=== PATIENT | female | born 1965 | race Caucasian/White ===

== ENCOUNTER → 2018-11-30 16:40 | Outpatient (CLI) | payer OTHER, SELFPAY ==
--- NOTE | 2018-11-30 | DI.MG.S_ITS ---
BILATERAL DIGITAL SCREENING MAMMOGRAM 3D/2D WITH CAD: 11/30/2018 CLINICAL: Routine screening. Comparison is made to exams dated: 07/18/2016 mammogram, 04/06/2006 mammogram, and 10/02/2005 mammogram - [facility]. The tissue of both breasts is extremely dense, which lowers the sensitivity of mammography. Current study was also evaluated with a Computer Aided Detection (CAD) system. There are mole markers on both breasts. No significant masses, calcifications, or other findings are seen in either breast. There has been no significant interval change. IMPRESSION: NEGATIVE There is no mammographic evidence of malignancy. A 1 year screening mammogram is recommended. This exam was interpreted at Station ID: [id number]. NOTE: For mammograms, a report in lay terms will be sent to the patient. Approximately 15% of breast malignancies will not be visualized mammographically. In the management of a palpable breast mass, a negative mammogram must not discourage biopsy of a clinically suspicious lesion. Electronically Signed By: Thiago [email or web address]/[email or web address]:11/30/2018 19:17:09 letter sent: Normal Exam ACR BI-RADS Category 1: Negative 3341F
== END ==
PROVIDERS: Family Provider Family Medicine; PCP Family Medicine; Visit Provider Specialist
DX: Z12.31 Encounter for screening mammogram for malignant neoplasm of breast (principal)
CPT/HCPCS: 77063; 77067

== ENCOUNTER → 2020-12-19 11:41 | Outpatient (CLI) | payer OTHER, SELFPAY ==
[2020-12-19 13:14] LABS: COVID19 -Nasal RAPID Negative (Negative)
== END ==
PROVIDERS: PCP Internal Medicine; Visit Provider Physician Assistant
DX: Z20.822 Contact with and (suspected) exposure to COVID-19 (principal); Z01.812 Encounter for preprocedural laboratory examination
CPT/HCPCS: 87635

== ENCOUNTER 2020-12-21 12:53 | Day surgery (SDC) | payer OTHER, SELFPAY ==
[2020-12-21] VITALS (7 sets, daily range): BP systolic 109–147; BP diastolic 66–87; PULSE 57–71; RESP 12–18; TEMP 36.6–36.8; O2SAT 99–100; BMI 23.1
--- NOTE | 2020-12-21 11:40 | P.HP_ITS ---
History of Present Illness History of Present Illness Date Patient Seen: 12/21/20 Time Patient Seen: 11:40 [place] [facility] [place]: 54 Years Old Female seen today for consideration of a screening colonoscopy. This will be her first colonoscopy. There have been no lower GI symptoms suggesting disease such as change in bowel habits, bleeding, abdominal pain or anemia. She does have a family history of colon cancer in her mother and colon polyps in her sibling. Overall health issues have been stable, including no major cardiac events for at least 6 weeks. Past Medical History: vocal chord polyp, right 2004 STORE OPERATIONS MANAGER care elsewhere Arthralgia FATIGUE Plantar fasciitis VITAMIN D DEFICIENCY OTOSCLEROSIS Past Surgical History: Tonsillectomy adenoids, 1998 Stapedectomy, right 1995 Family History: Family Hx Ovarian Cancer Mom- colon cancer Sister- Skin cancer Sibling - colon polyp Social History: Marital Status: [place], 04/07/61 Children: 3 Occupation: teacher Household Members: 2 Education: [place] Alcohol drinks/day: 1-2 per week Caffeine use/day: 1-2 Type of Exercise: elliptical Exercise Times per Week: 3 Guns in home: no Dental Care w/in 6 mos.: yes Sun Exposure: frequently Seat Belt Use: yes Smoking Status: never smoker Patient History Medical History (Updated 02/11/19 @ 14:04 by Faith Browning MD) Chickenpox (~1967) Hearing loss Surgical History (Updated 11/19/17 @ 08:00 by Zoya Spence) Anesthesia History of ear surgery (~1994) Status post adenoidectomy (~1979) Family & Social History Family History (Updated 11/19/17 @ 08:03 by Zoya Spence) Mother Colon cancer Ovarian cancer Father Leukemia Family/Other Ovarian cancer Grandfather Leukemia Grandmother Heart failure Grandfather Heart attack Grandmother Heart attack Tobacco & Substance use: Smoking Status Never smoker Meds Home Medications and Allergies Home Medications Medication Instructions Recorded Confirmed Type cyclosporine 0.05 % eye drops in a 1 drp OPHTH #0 ea 01/03/16 02/11/19 History dropperette (Restasis) clobetasol 0.05 % topical gel 1 applictn TOP DAILY #15 gram 02/24/19 12/21/20 Rx Allergies Allergy/AdvReac Type Severity Reaction Status Date / Time penicillin V [PENICILLIN V] Allergy Unknown Verified 12/21/20 13:41 Review of Systems Review of Systems Narrative: See HPI. Exam Narrative Exam Narrative: General: Alert and oriented, appearing stated age and in no acute distress. Head: Head normocephalic/atraumatic. Neck: Neck soft and supple, no lymphadenopathy. Lungs: Clear to auscultation bilaterally, no wheezes, rhonchi or rales. Heart: Normal S1 and S2 with regular rate and rhythm, no audible murmurs, rubs or gallops. Abdomen: Soft, non-tender, non-distended, no organomegaly. Possitive bowel sounds. Skin: intact without suspicious lesions or rashes, Psych: Alert and oriented x 3. Assessment & Plan Assessment & Plan narrative: 1. Family history of colon cancer, mother 2. Family history of colon polyps 3. Screening for colon cancer Plan for colonoscopy. The nature and character of the procedure as well as anticipated results were discussed. The possibility of not completing the procedure was also discussed. Possible complications including aspiration pneumonia, bleeding, perforation and reaction to medications either for sedation or preparation and missed lesions were discussed. Questions were answered and proceeding to the colonoscopy was elected. Informed consent signed. I sincerely appreciate the referral allowing me to participate in this patient's care. Please contact me with any questions or concerns.
--- NOTE | 2020-12-21 11:42 | P.OP.ENDO_ITS ---
Operative Date/Time/Diagnoses Date of procedure: 12/21/20 Time of procedure: 11:42 Procedure Notes SCOAP/Timeout: 2:07 p.m. Procedure in detail: ENDOSCOPIST: Mia Jha MD Sedation RN: Lyndsey Temple RN Sedation start time: 2:08 p.m. Sedation end time: 2:32 p.m. PROCEDURE: Colonoscopy INDICATIONS: 1. Family history of colon cancer, mother 2. Family history of colon polyps 3. Screening for colon cancer MEDICATION: Levsin 0.125 mg sublingual, incremental doses of Versed and fentanyl until appropriate level sedation achieved. ASA CLASS: 1 CECAL WITHDRAWAL TIME: 10 minutes COMPLICATIONS: None. EXTENT OF PROCEDURE: Cecum. QUALITY OF PREP: Good with portions of liquid stool. PROCEDURE: Prior to insertion of the colonoscope, a digital rectal examination was accomplished with circumferential palpation of the distal rectal mucosa without significant findings being noted. The high-definition pediatric colonoscope was passed into the rectum in the usual fashion and advanced over to the cecum witho ut difficulty. The ileocecal valve, appendiceal stoma, and medial wall all could be inspected and no abnormalities were seen. ASCENDING COLON: As the colonoscope was withdrawn, care was taken to expose and inspect the haustral folds and no abnormalities were seen. HEPATIC FLEXURE: Normal, no polyps, diverticula or other abnormalities. TRANSVERSE COLON: Normal, no polyps, diverticula or other abnormalities. DESCENDING COLON: Normal, no polyps, diverticula or other abnormalities. SIGMOID COLON: Normal, no polyps, diverticula or other abnormalities. RECTUM: Normal. J maneuver was produced. There was no significant perianal disease. The J maneuver was broken. The remainder of the rectum was inspected and there was no external hemorrhoid disease. The scope was withdrawn. IMPRESSION: 1. Normal colonoscopy PLAN: 1. Repeat colonoscopy in 5 years secondary to family history of colon cancer colon polyps. The possibility of a missed lesion including a malignancy has been discussed with the patient previously. Potential alarm symptoms have been discussed and should be reported immediately.
[2020-12-21] MEDS: LACTATED RINGERS 1,000 ML 200 ML IV (13:42)
[2020-12-21] MEDS: HYOSCYAMINE 0.125 MG TABLET PO (13:57)
[2020-12-21] MEDS: MIDAZOLAM 5 MG/5 ML VIAL IV (14:09)
[2020-12-21] MEDS: fentaNYL 250 MCG/5 ML INJ IV (14:10)
--- NOTE | 2020-12-21 15:13 | SUR.PHASEII ---
Belly soft, ready to go, ride called, pt dressed, left unit in stable condition.
== END 2020-12-21 15:14 | disposition home or self-care (01) ==
PROVIDERS: PCP Internal Medicine; Referring Provider Student in an Organized Health Care Education/Training Program; Visit Provider Student in an Organized Health Care Education/Training Program
PROC: 0DJD8ZZ Inspection of Lower Intestinal Tract, Via Natural or Artificial Opening Endoscopic (ICD-10-PCS; CPT 45378; principal; 2020-12-21 13:45)
DX: Z12.11 Encounter for screening for malignant neoplasm of colon (principal); Z80.0 Family history of malignant neoplasm of digestive organs
CPT/HCPCS: 45378; J2250; J3010

== ENCOUNTER 2021-01-03 15:15 | Outpatient (RCR) | payer OTHER, SELFPAY ==
--- NOTE | 2020-11-14 16:02 | PT.OIE ---
Current Diagnoses Pain in right knee (11/14/20) Other abnormalities of gait and mobility (11/14/20) Abnormal posture (11/14/20) Weakness (11/14/20) Past Medical History (Last Updated 11/19/17 @ 08:00 by Zoya Spence) Chickenpox (~1967) Hearing loss History of ear surgery (~1994) Past Surgical History (Last Updated 11/19/17 @ 08:00 by Zoya Spence) Anesthesia History of ear surgery (~1994) Status post adenoidectomy (~1979) Visit Care Team Role Provider Type SIENNA Ruth Attending Provider Advanced Food Beverage Manager Primary Care Provider Referring Provider Specialty: [facility] Address: [address] [place] [address] [place], [place], [facility] Email: [email or web address] Physical Therapy Initial Evaluation PT-OP-A Visit Information Start: 11/13/20 13:01 Freq: Status: Active Protocol: Document 11/14/20 14:16 [facility] (Rec: 11/14/20 15:51 [facility] [id number]) Out-Patient Physical Therapy Visit Information Visit Information Visit Type Initial Evaluation Visit Start Time 14:35 Visit Stop Time 15:30 Total Visit Minutes 55 Visit Number 1 Number of ENVIRONMENTAL PLANNER Visits 0 PT-OP-B Current Condition Start: 11/13/20 13:01 Freq: Status: Active Protocol: Document 11/14/20 14:16 [facility] (Rec: 11/14/20 15:51 [facility] [id number]) Current Condition History of Current Condition Onset Date 1 week ago spasms, chronic knee pain Current Complaints R knee pain & quad spasms History of Current Condition Pt reports wed she was camping and R leg was straight and she leaned fwd and shifted on it and R knee and quad seized and there was no way she could bend her knee. After about 1 min, it just relaxed. Thursday, she was vacuuming car and the same thing happened at that time it lasted for about 10 min. She looked at her knee and her knee cap was up . Pt reports it was hard to bear weight and sehw as shimmying on her leg and felt a relaxation and knee cap shifted down and it was fine. It felt like a spasm. She does have history of R knee pain even into her 20s and every now and then it will catch. It never prevented her from doing things. 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 Pt reports LBP and neck that are on/off. Reports R knee cap can sometimes be tender Treatment Goals Patient/Caregiver Goals be able feel comfortable in straight knee position, return to yoga and hiking and biking w/o feeling nervous PT-OP-C Subjective Start: 11/13/20 13:01 Freq: Status: Active Protocol: Document 11/14/20 14:16 [facility] (Rec: 11/14/20 15:51 [facility] [id number]) Patient Questionnaires Lower Extremity Functional Scale LEFS Score 76 PT-OP-D Balance Start: 11/13/20 13:01 Freq: Status: Active Protocol: Document 11/14/20 14:16 [facility] (Rec: 11/14/20 15:51 [facility] [id number]) Balance Tests Single Limb Standing Single Limb- Right >30 sec lat shear of pelvis Single Limb- Left >30 sec PT-OP-G Mobility & Gait Start: 11/13/20 13:01 Freq: Status: Active Protocol: Document 11/14/20 14:16 [facility] (Rec: 11/14/20 15:51 [facility] [id number]) OP Gait Assessment Comments Gait Comments significant rotation of lumbar spine w/push off and dec knee ext w/push off kristofer R PT-OP-J Posture/Palpation/Skin Start: 11/13/20 13:01 Freq: Status: Active Protocol: Document 11/14/20 14:16 [facility] (Rec: 11/14/20 15:51 [facility] [id number]) Posture Evaluation Jorge Alberto Postural Classification System Lumbar Protective Mechanism Left AP 2 Lumbar Protective Mechanism Right AP 2 Lumbar Protective Mechanism Left PA 2 Lumbar Protective Mechanism Right PA 1 Comments Posture Comments R>L IR of femur, tibia ER R PT-OP-K Range of Motion Start: 11/13/20 13:01 Freq: Status: Active Protocol: Document 11/14/20 14:16 [facility] (Rec: 11/14/20 15:51 [facility] [id number]) Knee Goniometric Range of Motion Knee Left Flexion Active (degrees) 135 Extension Active (degrees) 0 Right Flexion Active (degrees) 134 Extension Active (degrees) 5 Comments pain ext, discomfort flex PT-OP-L Special Tests Start: 11/13/20 13:01 Freq: Status: Active Protocol: Document 11/14/20 14:16 [facility] (Rec: 11/14/20 15:51 [facility] [id number]) Special Tests Knee Special Tests Jared Test Test Results positive R Straight Leg Raise Test Results min tightness B Varus- 25 Degrees Test Results neg Huynh Chondromalacia Test Results positive R Denys's Test Results neg Valgus- 25 Degrees Test Results neg PT-OP-M Strength Start: 11/13/20 13:01 Freq: Status: Active Protocol: Document 11/14/20 14:16 [facility] (Rec: 11/14/20 15:51 [facility] [id number]) Hip Strength Hip Manual Muscle Testing Right Flexion (L2) 4+ Good+ Extension (S1) 4 Good Abduction 5 Normal Adduction 5 Normal External Rotation 3+ Fair+ Internal Rotation 4+ Good+ Comments pain ER Left Flexion (L2) 4+ Good+ Extension (S1) 5 Normal Abduction 5 Normal Adduction 5 Normal External Rotation 5 Normal Internal Rotation 5 Normal Knee Strength Knee Manual Muscle Testing Right Flexion (S2) 5 Normal Extension (L3) 4 Good Comments pain ext Left Flexion (S2) 5 Normal Extension (L3) 5 Normal Ankle/Foot Strength Ankle and Foot Manual Muscle Testing Right Dorsiflexion (L4) 5 Normal Plantarflexion (S1) 4- Good- Comments 12 heel raises and knee uncomfortable Left Dorsiflexion (L4) 5 Normal Plantarflexion (S1) 5 Normal Comments 20 heel raises PT-OP-Q Treatments Start: 11/13/20 13:01 Freq: Status: Active Protocol: Document 11/14/20 14:16 [facility] (Rec: 11/14/20 15:51 [facility] [id number]) Manual Therapy Treatment Taping KT Body Location R knee Treatment Focus 3 Y for med glide of patella Type of Tape Kinesio Tape Self-Care/Home Management Treatment Education Other Education discussed importance of healthy eating habits, and water intake to prevent cramping, edu on knee anatomy PT-OP-T Assessment and Plan Start: 11/13/20 13:01 Freq: Status: Active Protocol: Document 11/14/20 14:16 [facility] (Rec: 11/14/20 15:51 [facility] [id number]) Physical Therapy Assessment Rehab Potential Rehabilitation Potential Good Evaluation Complexity Number of Personal Factors/Comorbidities 1-2 Number of Body Systems Impaired 4 or More Clinical Presentation at Evaluation Evolving Impairments Impairments Activity Tolerance,Balance, Functional Activities, Functional Mobility,Gait,Pain, Posture,ROM,Soft Tissue Mobility,Strength Goals gait Short Term Goal (STG) Pt will be able to do SLS for 30 sec B w/o lat leaning. STG Duration 12/15/20 Fur Storage Clerk Goal (LTG) Pt will be able to amb w/good mechanics and full push off B. LTG Duration 01/15/21 strength Short Term Goal (STG) Pt will be indep w/HEP STG Duration 12/15/20 Fur Storage Clerk Goal (LTG) Pt will have 5/5 LE MMT in all planes painfree and at least 4/5 LPM to show improved lower body stability in order to participate more in her activities w/o concerns of pain. LTG Duration 01/15/21 activities Short Term Goal (STG) Pt iwll be able to straighten knee to 0 deg w/o inc pain. STG Duration 12/15/20 Care Home Goal (LTG) Pt will be able to do all activities without pain or concerns of instability w/ R knee. LTG Duration 01/15/21 Assessment Summary Assessment Pt presents w/R knee pain w/ recent quad cramping that was debilitating. She has been very careful w/R knee over the past week when the quad cramping started because she is scared for it to that again . She has had R knee pain intermittently for the past 30 years, but never to the point that it stopped her from doing activities, but she would ice or just notice it when turning up the stairs etc . She was positive for possible meniscal tear and patellar tracking dysfunction. She has noticable gait changes and dec mm tone on R side. She would benefit from PT to work on quad strength, balance, gait mechanics and manual for dec pain. Physical Therapy Plan Frequency and Duration Frequency of Treatment 1-2x/week Duration of Treatment 2 months Plan of Care Start Date 11/14/20 Plan of Care End Date 01/15/21 Therapeutic Interventions Therapeutic Interventions Aquatic Therapy,Balance Training,Gait Training,Home Exercise Program,Joint Mobilizations,Manual Therapy, Neuromuscular Re-education, Patient/Caregiver Education, Self-Care/Home Management,Soft Tissue Mobilization,Taping, Therapeutic Activities, Therapeutic Exercises Modalities Cold Pack/Ice Massage,Electric Stimulation,Hot Packs, Infrared Therapy,Ultrasound Next Visit Focus/Plan Next Note Type Treatment Note Next Visit Plan bridge, squat, rolling out edu , STM to ITB & quad, assess response to taping, quad set into towel
--- NOTE | 2020-11-14 16:02 | PT.OPPOC ---
Physical, Occupational & Speech Therapy At [facility] Current Diagnoses Pain in right knee (11/14/20) Other abnormalities of gait and mobility (11/14/20) Abnormal posture (11/14/20) Weakness (11/14/20) Visit Care Team Role Provider Type SIENNA Ruth Attending Provider Advanced Global Sourcing Manager Primary Care Provider Referring Provider Specialty: [facility] Address: [address] [place] [address], [facility] [[email or web address] [place], [address] Email: [email or web address] Plan Of Care PT-OP-T Assessment and Plan Start: 11/13/20 13:01 Freq: Status: Active Protocol: Document 11/14/20 14:16 [facility] (Rec: 11/14/20 15:51 [facility] [id number]) Physical Therapy Assessment Rehab Potential Rehabilitation Potential Good Evaluation Complexity Number of Personal Factors/Comorbidities 1-2 Number of Body Systems Impaired 4 or More Clinical Presentation at Evaluation Evolving Impairments Impairments Activity Tolerance,Balance, Functional Activities, Functional Mobility,Gait,Pain, Posture,ROM,Soft Tissue Mobility,Strength Goals gait Short Term Goal (STG) Pt will be able to do SLS for 30 sec B w/o lat leaning. STG Duration 12/15/20 Halfway Goal (LTG) Pt will be able to amb w/good mechanics and full push off B. LTG Duration 01/15/21 strength Short Term Goal (STG) Pt will be indep w/HEP STG Duration 12/15/20 Nurse Anesthesia Program Director Goal (LTG) Pt will have 5/5 LE MMT in all planes painfree and at least 4/5 LPM to show improved lower body stability in order to participate more in her activities w/o concerns of pain. LTG Duration 01/15/21 activities Short Term Goal (STG) Pt iwll be able to straighten knee to 0 deg w/o inc pain. STG Duration 12/15/20 Nurse Anesthesia Program Director Goal (LTG) Pt will be able to do all activities without pain or concerns of instability w/ R knee. LTG Duration 01/15/21 Assessment Summary Assessment Pt presents w/R knee pain w/ recent quad cramping that was debilitating. She has been very careful w/R knee over the past week when the quad cramping started because she is scared for it to that again . She has had R knee pain intermittently for the past 30 years, but never to the point that it stopped her from doing activities, but she would ice or just notice it when turning up the stairs etc . She was positive for possible meniscal tear and patellar tracking dysfunction. She has noticable gait changes and dec mm tone on R side. She would benefit from PT to work on quad strength, balance, gait mechanics and manual for dec pain. Physical Therapy Plan Frequency and Duration Frequency of Treatment 1-2x/week Duration of Treatment 2 months Plan of Care Start Date 11/14/20 Plan of Care End Date 01/15/21 Therapeutic Interventions Therapeutic Interventions Aquatic Therapy,Balance Training,Gait Training,Home Exercise Program,Joint Mobilizations,Manual Therapy, Neuromuscular Re-education, Patient/Caregiver Education, Self-Care/Home Management,Soft Tissue Mobilization,Taping, Therapeutic Activities, Therapeutic Exercises Modalities Cold Pack/Ice Massage,Electric Stimulation,Hot Packs, Infrared Therapy,Ultrasound Next Visit Focus/Plan Next Note Type Treatment Note Next Visit Plan bridge, squat, rolling out edu , STM to ITB & quad, assess response to taping, quad set into towel Plan of Care Dates Plan of Care Start Date 11/14/20 Plan of Care End Date 01/15/21 Electronically Signed by: Mena López, PT 11/14/20 1601 Please Sign and Return: I have reviewed this Plan of Care and certify that the skilled therapy services above are required to meet the patient?s needs. Physician Signature Date Printed Name and Credentials Clinical Instructor Signature Printed Name and Credentials
--- NOTE | 2020-11-15 18:07 | PT.OTN ---
Current Diagnoses Pain in right knee (11/15/20) Other abnormalities of gait and mobility (11/15/20) Abnormal posture (11/15/20) Weakness (11/15/20) Physical Therapy Treatment Note PT-OP-A Visit Information Start: 11/13/20 13:01 Freq: Status: Active Protocol: Document 11/15/20 12:59 [facility] (Rec: 11/15/20 18:07 [facility] [id number]) Out-Patient Physical Therapy Visit Information Visit Information Visit Type Treatment Note Visit Start Time 10:34 Visit Stop Time 11:16 Total Visit Minutes 42 Visit Number 2 Number of MORTGAGE FUNDER Visits 0 PT-OP-B Current Condition Start: 11/13/20 13:01 Freq: Status: Active Protocol: Document 11/14/20 14:16 [facility] (Rec: 11/14/20 15:51 [facility] [id number]) Current Condition History of Current Condition Onset Date 1 week ago spasms, chronic knee pain Current Complaints R knee pain & quad spasms History of Current Condition Pt reports wed she was camping and R leg was straight and she leaned fwd and shifted on it and R knee and quad seized and there was no way she could bend her knee. After about 1 min, it just relaxed. Thursday, she was vacuuming car and the same thing happened at that time it lasted for about 10 min. She looked at her knee and her knee cap was up . Pt reports it was hard to bear weight and sehw as shimmying on her leg and felt a relaxation and knee cap shifted down and it was fine. It felt like a spasm. She does have history of R knee pain even into her 20s and every now and then it will catch. It never prevented her from doing things. 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 Pt reports LBP and neck that are on/off. Reports R knee cap can sometimes be tender Treatment Goals Patient/Caregiver Goals be able feel comfortable in straight knee position, return to yoga and hiking and biking w/o feeling nervous PT-OP-C Subjective Start: 11/13/20 13:01 Freq: Status: Active Protocol: Document 11/15/20 12:59 [facility] (Rec: 11/15/20 18:07 [facility] [id number]) OP-PT Subjective Patient Comments Patient Comments Pt reports she noticed some pain in R knee when walking down here initially but went away after the first little bit PT-OP-D Balance Start: 11/13/20 13:01 Freq: Status: Active Protocol: Document 11/14/20 14:16 [facility] (Rec: 11/14/20 15:51 [facility] [id number]) Balance Tests Single Limb Standing Single Limb- Right >30 sec lat shear of pelvis Single Limb- Left >30 sec PT-OP-G Mobility & Gait Start: 11/13/20 13:01 Freq: Status: Active Protocol: Document 11/14/20 14:16 [facility] (Rec: 11/14/20 15:51 [facility] [id number]) OP Gait Assessment Comments Gait Comments significant rotation of lumbar spine w/push off and dec knee ext w/push off kristofer R PT-OP-J Posture/Palpation/Skin Start: 11/13/20 13:01 Freq: Status: Active Protocol: Document 11/14/20 14:16 [facility] (Rec: 11/14/20 15:51 [facility] [id number]) Posture Evaluation Jorge Alberto Postural Classification System Lumbar Protective Mechanism Left AP 2 Lumbar Protective Mechanism Right AP 2 Lumbar Protective Mechanism Left PA 2 Lumbar Protective Mechanism Right PA 1 Comments Posture Comments R>L IR of femur, tibia ER R PT-OP-K Range of Motion Start: 11/13/20 13:01 Freq: Status: Active Protocol: Document 11/14/20 14:16 [facility] (Rec: 11/14/20 15:51 [facility] [id number]) Knee Goniometric Range of Motion Knee Left Flexion Active (degrees) 135 Extension Active (degrees) 0 Right Flexion Active (degrees) 134 Extension Active (degrees) 5 Comments pain ext, discomfort flex PT-OP-L Special Tests Start: 11/13/20 13:01 Freq: Status: Active Protocol: Document 11/14/20 14:16 [facility] (Rec: 11/14/20 15:51 [facility] [id number]) Special Tests Knee Special Tests Jared Test Test Results positive R Straight Leg Raise Test Results min tightness B Varus- 25 Degrees Test Results neg Huynh Chondromalacia Test Results positive R Denys's Test Results neg Valgus- 25 Degrees Test Results neg PT-OP-M Strength Start: 11/13/20 13:01 Freq: Status: Active Protocol: Document 11/14/20 14:16 [facility] (Rec: 11/14/20 15:51 [facility] [id number]) Hip Strength Hip Manual Muscle Testing Right Flexion (L2) 4+ Good+ Extension (S1) 4 Good Abduction 5 Normal Adduction 5 Normal External Rotation 3+ Fair+ Internal Rotation 4+ Good+ Comments pain ER Left Flexion (L2) 4+ Good+ Extension (S1) 5 Normal Abduction 5 Normal Adduction 5 Normal External Rotation 5 Normal Internal Rotation 5 Normal Knee Strength Knee Manual Muscle Testing Right Flexion (S2) 5 Normal Extension (L3) 4 Good Comments pain ext Left Flexion (S2) 5 Normal Extension (L3) 5 Normal Ankle/Foot Strength Ankle and Foot Manual Muscle Testing Right Dorsiflexion (L4) 5 Normal Plantarflexion (S1) 4- Good- Comments 12 heel raises and knee uncomfortable Left Dorsiflexion (L4) 5 Normal Plantarflexion (S1) 5 Normal Comments 20 heel raises PT-OP-Q Treatments Start: 11/13/20 13:01 Freq: Status: Active Protocol: Document 11/15/20 12:59 [facility] (Rec: 11/15/20 18:07 [facility] [id number]) Therapeutic Exercises Supine Exercises bridge Supine Exercise Name bridge w/alt march Side bilateral Reps/Minutes 10 Standing Exercises squat Side bilateral Reps/Minutes 2x15 Comments working on foot placement and making sure wt even and pelvis does not go R quad stretch Standing Exercise Name 1. active quad stretch w/glute activaiton x15 sec x2 2. quad stretch x30sec Side bilateral TKE Side right Equipment Used L3 Reps/Minutes 20 Other Exercises foam roll Other Exercise Name roll out quads, HS ITB Side right Manual Therapy Treatment Soft Tissue Mobilization ITB Body Location R Mobilization Type Rolling Intensity/Depth Moderate Patellar tendon Body Location R Mobilization Type Strumming Intensity/Depth Moderate Body Position Hooklying Comments w/APs Joint Mobilizations patellofemoral Joint L Direction sup, inf, med PT-OP-T Assessment and Plan Start: 11/13/20 13:01 Freq: Status: Active Protocol: Document 11/15/20 12:59 [facility] (Rec: 11/15/20 18:07 [facility] [id number]) Physical Therapy Assessment Goals gait Short Term Goal (STG) Pt will be able to do SLS for 30 sec B w/o lat leaning. STG Duration 8/21/21 Medical Physicist Goal (LTG) Pt will be able to amb w/good mechanics and full push off B. LTG Duration 01/15/21 strength Short Term Goal (STG) Pt will be indep w/HEP STG Duration 12/15/20 Medical Physicist Goal (LTG) Pt will have 5/5 LE MMT in all planes painfree and at least 4/5 LPM to show improved lower body stability in order to participate more in her activities w/o concerns of pain. LTG Duration 01/15/21 activities Short Term Goal (STG) Pt iwll be able to straighten knee to 0 deg w/o inc pain. STG Duration 12/15/20 Detention Goal (LTG) Pt will be able to do all activities without pain or concerns of instability w/ R knee. LTG Duration 01/15/21 Assessment Summary Assessment Pt had improved patellar mobility after treatment and was able to achieve better ext w/less discomfort. She did wellw ith exercises with cueing required for form w/ squats. Pt reported dec discomfort after session. Physical Therapy Plan Frequency and Duration Frequency of Treatment 1-2x/week Duration of Treatment 2 months Plan of Care Start Date 11/14/20 Plan of Care End Date 01/15/21 Next Visit Focus/Plan Next Note Type Treatment Note Next Visit Plan review exercises, STM to ITB & quad, PNF for post dep, work on ability to push off in gait , clamshells, work on glute strength
--- NOTE | 2020-12-12 13:09 | PT.OTN ---
Current Diagnoses Pain in right knee (12/12/20) Other abnormalities of gait and mobility (12/12/20) Abnormal posture (12/12/20) Weakness (12/12/20) Physical Therapy Treatment Note PT-OP-A Visit Information Start: 11/13/20 13:01 Freq: Status: Active Protocol: Document 12/12/20 13:02 [facility] (Rec: 12/12/20 13:09 [facility] [id number]) Out-Patient Physical Therapy Visit Information Visit Information Visit Type Treatment Note Visit Start Time 07:31 Visit Stop Time 08:15 Total Visit Minutes 44 Visit Number 3 Number of MAINTENANCE REPRESENTATIVE Visits 0 PT-OP-B Current Condition Start: 11/13/20 13:01 Freq: Status: Active Protocol: Document 11/14/20 14:16 [facility] (Rec: 11/14/20 15:51 [facility] [id number]) Current Condition History of Current Condition Onset Date 1 week ago spasms, chronic knee pain Current Complaints R knee pain & quad spasms History of Current Condition Pt reports wed she was camping and R leg was straight and she leaned fwd and shifted on it and R knee and quad seized and there was no way she could bend her knee. After about 1 min, it just relaxed. Thursday, she was vacuuming car and the same thing happened at that time it lasted for about 10 min. She looked at her knee and her knee cap was up . Pt reports it was hard to bear weight and sehw as shimmying on her leg and felt a relaxation and knee cap shifted down and it was fine. It felt like a spasm. She does have history of R knee pain even into her 20s and every now and then it will catch. It never prevented her from doing things. 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 Pt reports LBP and neck that are on/off. Reports R knee cap can sometimes be tender Treatment Goals Patient/Caregiver Goals be able feel comfortable in straight knee position, return to yoga and hiking and biking w/o feeling nervous PT-OP-C Subjective Start: 11/13/20 13:01 Freq: Status: Active Protocol: Document 12/12/20 13:02 [facility] (Rec: 12/12/20 13:09 [facility] [id number]) OP-PT Subjective Patient Comments Patient Comments Pt reprots doing really well with exercises until she had her vacation PT-OP-D Balance Start: 11/13/20 13:01 Freq: Status: Active Protocol: Document 11/14/20 14:16 [facility] (Rec: 11/14/20 15:51 [facility] [id number]) Balance Tests Single Limb Standing Single Limb- Right >30 sec lat shear of pelvis Single Limb- Left >30 sec PT-OP-G Mobility & Gait Start: 11/13/20 13:01 Freq: Status: Active Protocol: Document 11/14/20 14:16 [facility] (Rec: 11/14/20 15:51 [facility] [id number]) OP Gait Assessment Comments Gait Comments significant rotation of lumbar spine w/push off and dec knee ext w/push off kristofer R PT-OP-J Posture/Palpation/Skin Start: 11/13/20 13:01 Freq: Status: Active Protocol: Document 11/14/20 14:16 [facility] (Rec: 11/14/20 15:51 [facility] [id number]) Posture Evaluation [facility] Postural Classification System Lumbar Protective Mechanism Left AP 2 Lumbar Protective Mechanism Right AP 2 Lumbar Protective Mechanism Left PA 2 Lumbar Protective Mechanism Right PA 1 Comments Posture Comments R>L IR of femur, tibia ER R PT-OP-K Range of Motion Start: 11/13/20 13:01 Freq: Status: Active Protocol: Document 11/14/20 14:16 [facility] (Rec: 11/14/20 15:51 [facility] [id number]) Knee Goniometric Range of Motion Knee Left Flexion Active (degrees) 135 Extension Active (degrees) 0 Right Flexion Active (degrees) 134 Extension Active (degrees) 5 Comments pain ext, discomfort flex PT-OP-L Special Tests Start: 11/13/20 13:01 Freq: Status: Active Protocol: Document 11/14/20 14:16 [facility] (Rec: 11/14/20 15:51 [facility] [id number]) Special Tests Knee Special Tests Jared Test Test Results positive R Straight Leg Raise Test Results min tightness B Varus- 25 Degrees Test Results neg Huynh Chondromalacia Test Results positive R Denys's Test Results neg Valgus- 25 Degrees Test Results neg PT-OP-M Strength Start: 11/13/20 13:01 Freq: Status: Active Protocol: Document 11/14/20 14:16 [facility] (Rec: 11/14/20 15:51 [facility] [id number]) Hip Strength Hip Manual Muscle Testing Right Flexion (L2) 4+ Good+ Extension (S1) 4 Good Abduction 5 Normal Adduction 5 Normal External Rotation 3+ Fair+ Internal Rotation 4+ Good+ Comments pain ER Left Flexion (L2) 4+ Good+ Extension (S1) 5 Normal Abduction 5 Normal Adduction 5 Normal External Rotation 5 Normal Internal Rotation 5 Normal Knee Strength Knee Manual Muscle Testing Right Flexion (S2) 5 Normal Extension (L3) 4 Good Comments pain ext Left Flexion (S2) 5 Normal Extension (L3) 5 Normal Ankle/Foot Strength Ankle and Foot Manual Muscle Testing Right Dorsiflexion (L4) 5 Normal Plantarflexion (S1) 4- Good- Comments 12 heel raises and knee uncomfortable Left Dorsiflexion (L4) 5 Normal Plantarflexion (S1) 5 Normal Comments 20 heel raises PT-OP-Q Treatments Start: 11/13/20 13:01 Freq: Status: Active Protocol: Document 12/12/20 13:02 [facility] (Rec: 12/12/20 13:09 [facility] [id number]) Therapeutic Exercises Standing Exercises squat Side bilateral Reps/Minutes 2x15 Comments working on knee position, 1 set in mirror TKE Side right Equipment Used L3 Reps/Minutes 10 Gait Training Gait Activity step up Description progressive 4 in to 8 in Comments B working on wt shift into LE for step up Manual Therapy Treatment Soft Tissue Mobilization ITB Body Location R Mobilization Type Rolling Intensity/Depth Moderate Joint Mobilizations patellofemoral Joint L Direction sup, inf, med Taping KT Body Location R knee Treatment Focus 3 Y for med glide of patella Type of Tape Kinesio Tape PT-OP-T Assessment and Plan Start: 11/13/20 13:01 Freq: Status: Active Protocol: Document 12/12/20 13:02 [facility] (Rec: 12/12/20 13:09 [facility] [id number]) Physical Therapy Assessment Goals gait Short Term Goal (STG) Pt will be able to do SLS for 30 sec B w/o lat leaning. STG Duration 12/15/20 Knife Edger Goal (LTG) Pt will be able to amb w/good mechanics and full push off B. LTG Duration 01/15/21 strength Short Term Goal (STG) Pt will be indep w/HEP STG Duration 12/15/20 Knife Edger Goal (LTG) Pt will have 5/5 LE MMT in all planes painfree and at least 4/5 LPM to show improved lower body stability in order to participate more in her activities w/o concerns of pain. LTG Duration 01/15/21 activities Short Term Goal (STG) Pt iwll be able to straighten knee to 0 deg w/o inc pain. STG Duration 12/15/20 Knife Edger Goal (LTG) Pt will be able to do all activities without pain or concerns of instability w/ R knee. LTG Duration 01/15/21 Assessment Summary Assessment Pt had dec knee pain when working on wt shifting into stair for step up. Pt did well with TKE exercise but did require cues for squat for kene trackingover 2-3nd toe vs 1st which dec knee pain w/ squat. Physical Therapy Plan Frequency and Duration Frequency of Treatment 1-2x/week Duration of Treatment 2 months Plan of Care Start Date 11/14/20 Plan of Care End Date 01/15/21 Next Visit Focus/Plan Next Note Type Treatment Note Next Visit Plan review squat & step up, work on lunge, look at step down, add clamshells, PNF, work on push off
--- NOTE | 2020-12-20 09:08 | PT.OTN ---
Current Diagnoses Pain in right knee (12/20/20) Other abnormalities of gait and mobility (12/20/20) Abnormal posture (12/20/20) Weakness (12/20/20) Physical Therapy Treatment Note PT-OP-A Visit Information Start: 11/13/20 13:01 Freq: Status: Active Protocol: Document 12/20/20 07:40 [facility] (Rec: 12/20/20 09:07 [facility] [id number]) Out-Patient Physical Therapy Visit Information Visit Information Visit Type Treatment Note Visit Start Time 08:15 Visit Stop Time 08:58 Total Visit Minutes 43 Visit Number 4 Number of OPTO MECHANICAL ENGINEER Visits 0 PT-OP-B Current Condition Start: 11/13/20 13:01 Freq: Status: Active Protocol: Document 11/14/20 14:16 [facility] (Rec: 11/14/20 15:51 [facility] [id number]) Current Condition History of Current Condition Onset Date 1 week ago spasms, chronic knee pain Current Complaints R knee pain & quad spasms History of Current Condition Pt reports wed she was camping and R leg was straight and she leaned fwd and shifted on it and R knee and quad seized and there was no way she could bend her knee. After about 1 min, it just relaxed. Thursday, she was vacuuming car and the same thing happened at that time it lasted for about 10 min. She looked at her knee and her knee cap was up . Pt reports it was hard to bear weight and sehw as shimmying on her leg and felt a relaxation and knee cap shifted down and it was fine. It felt like a spasm. She does have history of R knee pain even into her 20s and every now and then it will catch. It never prevented her from doing things. 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 Pt reports LBP and neck that are on/off. Reports R knee cap can sometimes be tender Treatment Goals Patient/Caregiver Goals be able feel comfortable in straight knee position, return to yoga and hiking and biking w/o feeling nervous PT-OP-C Subjective Start: 11/13/20 13:01 Freq: Status: Active Protocol: Document 12/20/20 07:40 [facility] (Rec: 12/20/20 09:07 [facility] [id number]) OP-PT Subjective Patient Comments Patient Comments Pt reports less knee pain with stairs now and feels opal w/ knee Patient Reported Progress Improving PT-OP-D Balance Start: 11/13/20 13:01 Freq: Status: Active Protocol: Document 11/14/20 14:16 [facility] (Rec: 11/14/20 15:51 [facility] [id number]) Balance Tests Single Limb Standing Single Limb- Right >30 sec lat shear of pelvis Single Limb- Left >30 sec PT-OP-G Mobility & Gait Start: 11/13/20 13:01 Freq: Status: Active Protocol: Document 11/14/20 14:16 [facility] (Rec: 11/14/20 15:51 [facility] [id number]) OP Gait Assessment Comments Gait Comments significant rotation of lumbar spine w/push off and dec knee ext w/push off kristofer R PT-OP-J Posture/Palpation/Skin Start: 11/13/20 13:01 Freq: Status: Active Protocol: Document 11/14/20 14:16 [facility] (Rec: 11/14/20 15:51 [facility] [id number]) Posture Evaluation [facility] Postural Classification System Lumbar Protective Mechanism Left AP 2 Lumbar Protective Mechanism Right AP 2 Lumbar Protective Mechanism Left PA 2 Lumbar Protective Mechanism Right PA 1 Comments Posture Comments R>L IR of femur, tibia ER R PT-OP-K Range of Motion Start: 11/13/20 13:01 Freq: Status: Active Protocol: Document 11/14/20 14:16 [facility] (Rec: 11/14/20 15:51 [facility] [id number]) Knee Goniometric Range of Motion Knee Left Flexion Active (degrees) 135 Extension Active (degrees) 0 Right Flexion Active (degrees) 134 Extension Active (degrees) 5 Comments pain ext, discomfort flex PT-OP-L Special Tests Start: 11/13/20 13:01 Freq: Status: Active Protocol: Document 11/14/20 14:16 [facility] (Rec: 11/14/20 15:51 [facility] [id number]) Special Tests Knee Special Tests Jared Test Test Results positive R Straight Leg Raise Test Results min tightness B Varus- 25 Degrees Test Results neg Huynh Chondromalacia Test Results positive R Denys's Test Results neg Valgus- 25 Degrees Test Results neg PT-OP-M Strength Start: 11/13/20 13:01 Freq: Status: Active Protocol: Document 11/14/20 14:16 [facility] (Rec: 11/14/20 15:51 [facility] [id number]) Hip Strength Hip Manual Muscle Testing Right Flexion (L2) 4+ Good+ Extension (S1) 4 Good Abduction 5 Normal Adduction 5 Normal External Rotation 3+ Fair+ Internal Rotation 4+ Good+ Comments pain ER Left Flexion (L2) 4+ Good+ Extension (S1) 5 Normal Abduction 5 Normal Adduction 5 Normal External Rotation 5 Normal Internal Rotation 5 Normal Knee Strength Knee Manual Muscle Testing Right Flexion (S2) 5 Normal Extension (L3) 4 Good Comments pain ext Left Flexion (S2) 5 Normal Extension (L3) 5 Normal Ankle/Foot Strength Ankle and Foot Manual Muscle Testing Right Dorsiflexion (L4) 5 Normal Plantarflexion (S1) 4- Good- Comments 12 heel raises and knee uncomfortable Left Dorsiflexion (L4) 5 Normal Plantarflexion (S1) 5 Normal Comments 20 heel raises PT-OP-Q Treatments Start: 11/13/20 13:01 Freq: Status: Active Protocol: Document 12/20/20 07:40 [facility] (Rec: 12/20/20 09:07 [facility] [id number]) Therapeutic Exercises Standing Exercises SLS Standing Exercise Name focus on no lat lean Side bilateral lunge Standing Exercise Name fwd Side bilateral Reps/Minutes 10 squat Side bilateral Reps/Minutes 15 Comments working on knee position, 1 set in mirror Therapeutic Activity Therapeutic Activity posture Name standing posture w/owrking on even wt bearing & no lock knees Gait Training Gait Activity step up Comments 1. progressive 4 in to 6 in for step down- work on knee tracking 2.B working on wt shift into LE for step up onto 6 in steps Manual Therapy Treatment Taping KT Body Location R knee Treatment Focus 3 Y for med glide of patella Type of Tape Kinesio Tape PT-OP-T Assessment and Plan Start: 11/13/20 13:01 Freq: Status: Active Protocol: Document 12/20/20 07:40 [facility] (Rec: 12/20/20 09:07 [facility] [id number]) Physical Therapy Assessment Goals gait Short Term Goal (STG) Pt will be able to do SLS for 30 sec B w/o lat leaning. STG Duration 12/15/20 Stock Shipper Goal (LTG) Pt will be able to amb w/good mechanics and full push off B. LTG Duration 01/15/21 strength Short Term Goal (STG) Pt will be indep w/HEP STG Duration 12/15/20 Stock Shipper Goal (LTG) Pt will have 5/5 LE MMT in all planes painfree and at least 4/5 LPM to show improved lower body stability in order to participate more in her activities w/o concerns of pain. LTG Duration 01/15/21 activities Short Term Goal (STG) Pt iwll be able to straighten knee to 0 deg w/o inc pain. STG Duration 12/15/20 Stock Shipper Goal (LTG) Pt will be able to do all activities without pain or concerns of instability w/ R knee. LTG Duration 01/15/21 Assessment Summary Assessment Pt is improving w/mechanics with activities and was able to achieve good posture and was educated on good posture w /VCT testing. She was able to do some self correcting and required some cues for hip and knee position w/all exercises and steps. Physical Therapy Plan Frequency and Duration Frequency of Treatment 1-2x/week Duration of Treatment 2 months Plan of Care Start Date 11/14/20 Plan of Care End Date 01/15/21 Next Visit Focus/Plan Next Note Type Treatment Note Next Visit Plan johnson, review posture, PNF, work on gait
--- NOTE | 2021-01-03 16:37 | PT.OTN ---
Current Diagnoses Pain in right knee (01/03/21) Other abnormalities of gait and mobility (01/03/21) Abnormal posture (01/03/21) Weakness (01/03/21) Physical Therapy Treatment Note PT-OP-A Visit Information Start: 11/13/20 13:01 Freq: Status: Active Protocol: Document 01/03/21 16:15 SAK (Rec: 01/03/21 16:37 SAK [id number]) Out-Patient Physical Therapy Visit Information Visit Information Visit Type Treatment Note Visit Start Time 15:15 Visit Stop Time 16:02 Total Visit Minutes 47 Visit Number 5 Number of WAGE HAND Visits 0 PT-OP-B Current Condition Start: 11/13/20 13:01 Freq: Status: Active Protocol: Document 11/14/20 14:16 LR (Rec: 11/14/20 15:51 [facility] [id number]) Current Condition History of Current Condition Onset Date 1 week ago spasms, chronic knee pain Current Complaints R knee pain & quad spasms History of Current Condition Pt reports wed she was camping and R leg was straight and she leaned fwd and shifted on it and R knee and quad seized and there was no way she could bend her knee. After about 1 min, it just relaxed. Thursday, she was vacuuming car and the same thing happened at that time it lasted for about 10 min. She looked at her knee and her knee cap was up . Pt reports it was hard to bear weight and sehw as shimmying on her leg and felt a relaxation and knee cap shifted down and it was fine. It felt like a spasm. She does have history of R knee pain even into her 20s and every now and then it will catch. It never prevented her from doing things. 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 Pt reports LBP and neck that are on/off. Reports R knee cap can sometimes be tender Treatment Goals Patient/Caregiver Goals be able feel comfortable in straight knee position, return to yoga and hiking and biking w/o feeling nervous PT-OP-C Subjective Start: 11/13/20 13:01 Freq: Status: Active Protocol: Document 01/03/21 16:15 SAK (Rec: 01/03/21 16:37 SAK [id number]) OP-PT Subjective Patient Comments Patient Comments Reports has pain about 40% of the time when walking on stairs but usually able to correct alignment or mechanics to decrease the pain. Has difficulty doing self-taping Patient Reported Progress Improving PT-OP-D Balance Start: 11/13/20 13:01 Freq: Status: Active Protocol: Document 11/14/20 14:16 [facility] (Rec: 11/14/20 15:51 [facility] [id number]) Balance Tests Single Limb Standing Single Limb- Right >30 sec lat shear of pelvis Single Limb- Left >30 sec PT-OP-G Mobility & Gait Start: 11/13/20 13:01 Freq: Status: Active Protocol: Document 11/14/20 14:16 [facility] (Rec: 11/14/20 15:51 [facility] [id number]) OP Gait Assessment Comments Gait Comments significant rotation of lumbar spine w/push off and dec knee ext w/push off kristofer R PT-OP-J Posture/Palpation/Skin Start: 11/13/20 13:01 Freq: Status: Active Protocol: Document 11/14/20 14:16 [facility] (Rec: 11/14/20 15:51 [facility] [id number]) Posture Evaluation [facility] Postural Classification System Lumbar Protective Mechanism Left AP 2 Lumbar Protective Mechanism Right AP 2 Lumbar Protective Mechanism Left PA 2 Lumbar Protective Mechanism Right PA 1 Comments Posture Comments R>L IR of femur, tibia ER R PT-OP-K Range of Motion Start: 11/13/20 13:01 Freq: Status: Active Protocol: Document 11/14/20 14:16 [facility] (Rec: 11/14/20 15:51 [facility] [id number]) Knee Goniometric Range of Motion Knee Left Flexion Active (degrees) 135 Extension Active (degrees) 0 Right Flexion Active (degrees) 134 Extension Active (degrees) 5 Comments pain ext, discomfort flex PT-OP-L Special Tests Start: 11/13/20 13:01 Freq: Status: Active Protocol: Document 11/14/20 14:16 [facility] (Rec: 11/14/20 15:51 [facility] [id number]) Special Tests Knee Special Tests Jared Test Test Results positive R Straight Leg Raise Test Results min tightness B Varus- 25 Degrees Test Results neg Huynh Chondromalacia Test Results positive R Denys's Test Results neg Valgus- 25 Degrees Test Results neg PT-OP-M Strength Start: 11/13/20 13:01 Freq: Status: Active Protocol: Document 11/14/20 14:16 [facility] (Rec: 11/14/20 15:51 [facility] [id number]) Hip Strength Hip Manual Muscle Testing Right Flexion (L2) 4+ Good+ Extension (S1) 4 Good Abduction 5 Normal Adduction 5 Normal External Rotation 3+ Fair+ Internal Rotation 4+ Good+ Comments pain ER Left Flexion (L2) 4+ Good+ Extension (S1) 5 Normal Abduction 5 Normal Adduction 5 Normal External Rotation 5 Normal Internal Rotation 5 Normal Knee Strength Knee Manual Muscle Testing Right Flexion (S2) 5 Normal Extension (L3) 4 Good Comments pain ext Left Flexion (S2) 5 Normal Extension (L3) 5 Normal Ankle/Foot Strength Ankle and Foot Manual Muscle Testing Right Dorsiflexion (L4) 5 Normal Plantarflexion (S1) 4- Good- Comments 12 heel raises and knee uncomfortable Left Dorsiflexion (L4) 5 Normal Plantarflexion (S1) 5 Normal Comments 20 heel raises PT-OP-Q Treatments Start: 11/13/20 13:01 Freq: Status: Active Protocol: Document 01/03/21 16:15 SAK (Rec: 01/03/21 16:37 [facility] [id number]) Gym Equipment Shuttle Balance chains red Details balance and wt shift fwd/bck, side/side, stride Comments mirror for visual feedback Therapeutic Exercises Standing Exercises sidestepping Resistance L1 TB Reps/Minutes [address] Comments cues for feet toward wall, controlled movement, bent knees wall posture Reps/Minutes 5 min Comments cues for full body alignment including no knee locking, core activation SLS Standing Exercise Name focus on no lat lean Side bilateral lunge Standing Exercise Name fwd Side bilateral Equipment Used BOSU Reps/Minutes 10 Comments cues for alignment squat Side bilateral Reps/Minutes 15 Comments working on knee position, equal weight bearing 1 set in mirror quad stretch Standing Exercise Name 1. active quad stretch w/glute activaiton x15 sec x2 2. quad stretch x30sec Side bilateral Comments cues for thighs parallel Gait Training Gait Activity step up Comments 6 stairs ascend and descend slowly, emphasis on alignment, wt shift. Manual Therapy Treatment Taping KT Body Location R knee Treatment Focus 3 Y for med glide of patella Type of Tape Kinesio Tape PT-OP-T Assessment and Plan Start: 11/13/20 13:01 Freq: Status: Active Protocol: Document 01/03/21 16:15 SARIAH (Rec: 01/03/21 16:37 [facility] [id number]) Physical Therapy Assessment Goals gait Short Term Goal (STG) Pt will be able to do SLS for 30 sec B w/o lat leaning. 01/03/21: good goal progress Jail Goal (LTG) Pt will be able to amb w/good mechanics and full push off B. 01/03/21: good goal progress LTG Duration 01/15/21 strength Short Term Goal (STG) Pt will be indep w/HEP 01/03/21: patient independent with current HEP, but ongoing progression Pinball Machine Repairer Goal (LTG) Pt will have 5/5 LE MMT in all planes painfree and at least 4/5 LPM to show improved lower body stability in order to participate more in her activities w/o concerns of pain. LTG Duration 01/15/21 activities Short Term Goal (STG) Pt iwll be able to straighten knee to 0 deg w/o inc pain. STG Duration 12/15/20 Pinball Machine Repairer Goal (LTG) Pt will be able to do all activities without pain or concerns of instability w/ R knee. LTG Duration 01/15/21 Assessment Summary Assessment Patient reporting decrease in pain, and improved attention to her mechanics. Has difficulty in postural correction, demonstrated good understanding of wall posture ex, will need further review and instruction. Progressed to lunges on BOSU, and added balance and weight shift ex on shuttle balance and sidestepping with resistance. Frequent cues with all for alignment and muscle activation sequencing. Further instruction on kinesiotaping with good understanding demonstrated. Physical Therapy Plan Frequency and Duration Frequency of Treatment 1-2x/week Duration of Treatment 2 months Plan of Care Start Date 11/14/20 Plan of Care End Date 01/15/21 Next Visit Focus/Plan Next Note Type Treatment Note Next Visit Plan johnson, review posture, PNF, work on gait
--- NOTE | 2021-01-23 14:25 | PT-OP ANOTE ---
cancelled vial Telev
--- NOTE | 2021-01-23 16:14 | PT.OPDS ---
Current Diagnoses Pain in right knee (01/03/21) Other abnormalities of gait and mobility (01/03/21) Abnormal posture (01/03/21) Weakness (01/03/21) Visit Care Team Role Provider Type SIENNA Ruth Attending Provider Advanced Magnaflux Operator Primary Care Provider Referring Provider Specialty: Family Practice Address: [address] [place] [address] [place], [address] Email: [email or web address] Visit Number Visit Number 5 Discharge Summary PT-OP-B Current Condition Start: 11/13/20 13:01 Freq: Status: Active Protocol: Document 11/14/20 14:16 [facility] (Rec: 11/14/20 15:51 [facility] [id number]) Current Condition History of Current Condition Onset Date 1 week ago spasms, chronic knee pain Current Complaints R knee pain & quad spasms History of Current Condition Pt reports wed she was camping and R leg was straight and she leaned fwd and shifted on it and R knee and quad seized and there was no way she could bend her knee. After about 1 min, it just relaxed. Thursday, she was vacuuming car and the same thing happened at that time it lasted for about 10 min. She looked at her knee and her knee cap was up . Pt reports it was hard to bear weight and sehw as shimmying on her leg and felt a relaxation and knee cap shifted down and it was fine. It felt like a spasm. She does have history of R knee pain even into her 20s and every now and then it will catch. It never prevented her from doing things. 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 Pt reports LBP and neck that are on/off. Reports R knee cap can sometimes be tender Treatment Goals Patient/Caregiver Goals be able feel comfortable in straight knee position, return to yoga and hiking and biking w/o feeling nervous PT-OP-C Subjective Start: 11/13/20 13:01 Freq: Status: Active Protocol: Document 01/03/21 16:15 SAK (Rec: 01/03/21 16:37 SAK [id number]) OP-PT Subjective Patient Comments Patient Comments Reports has pain about 40% of the time when walking on stairs but usually able to correct alignment or mechanics to decrease the pain. Has difficulty doing self-taping Patient Reported Progress Improving PT-OP-D Balance Start: 11/13/20 13:01 Freq: Status: Active Protocol: Document 11/14/20 14:16 [facility] (Rec: 11/14/20 15:51 [facility] [id number]) Balance Tests Single Limb Standing Single Limb- Right >30 sec lat shear of pelvis Single Limb- Left >30 sec PT-OP-G Mobility & Gait Start: 11/13/20 13:01 Freq: Status: Active Protocol: Document 11/14/20 14:16 [facility] (Rec: 11/14/20 15:51 [facility] [id number]) OP Gait Assessment Comments Gait Comments significant rotation of lumbar spine w/push off and dec knee ext w/push off kristofer R PT-OP-J Posture/Palpation/Skin Start: 11/13/20 13:01 Freq: Status: Active Protocol: Document 11/14/20 14:16 [facility] (Rec: 11/14/20 15:51 [facility] [id number]) Posture Evaluation [facility] Postural Classification System Lumbar Protective Mechanism Left AP 2 Lumbar Protective Mechanism Right AP 2 Lumbar Protective Mechanism Left PA 2 Lumbar Protective Mechanism Right PA 1 Comments Posture Comments R>L IR of femur, tibia ER R PT-OP-K Range of Motion Start: 11/13/20 13:01 Freq: Status: Active Protocol: Document 11/14/20 14:16 [facility] (Rec: 11/14/20 15:51 [facility] [id number]) Knee Goniometric Range of Motion Knee Left Flexion Active (degrees) 135 Extension Active (degrees) 0 Right Flexion Active (degrees) 134 Extension Active (degrees) 5 Comments pain ext, discomfort flex PT-OP-L Special Tests Start: 11/13/20 13:01 Freq: Status: Active Protocol: Document 11/14/20 14:16 [facility] (Rec: 11/14/20 15:51 [facility] [id number]) Special Tests Knee Special Tests Jared Test Test Results positive R Straight Leg Raise Test Results min tightness B Varus- 25 Degrees Test Results neg Huynh Chondromalacia Test Results positive R Denys's Test Results neg Valgus- 25 Degrees Test Results neg PT-OP-M Strength Start: 11/13/20 13:01 Freq: Status: Active Protocol: Document 11/14/20 14:16 [facility] (Rec: 11/14/20 15:51 [facility] [id number]) Hip Strength Hip Manual Muscle Testing Right Flexion (L2) 4+ Good+ Extension (S1) 4 Good Abduction 5 Normal Adduction 5 Normal External Rotation 3+ Fair+ Internal Rotation 4+ Good+ Comments pain ER Left Flexion (L2) 4+ Good+ Extension (S1) 5 Normal Abduction 5 Normal Adduction 5 Normal External Rotation 5 Normal Internal Rotation 5 Normal Knee Strength Knee Manual Muscle Testing Right Flexion (S2) 5 Normal Extension (L3) 4 Good Comments pain ext Left Flexion (S2) 5 Normal Extension (L3) 5 Normal Ankle/Foot Strength Ankle and Foot Manual Muscle Testing Right Dorsiflexion (L4) 5 Normal Plantarflexion (S1) 4- Good- Comments 12 heel raises and knee uncomfortable Left Dorsiflexion (L4) 5 Normal Plantarflexion (S1) 5 Normal Comments 20 heel raises PT-OP-T Assessment and Plan Start: 11/13/20 13:01 Freq: Status: Active Protocol: Document 01/23/21 14:25 SARIAH (Rec: 01/23/21 16:14 [facility] [id number]) Physical Therapy Plan Discharge Physical Therapy Discharge Reasons Patient Request
== END 2021-01-24 09:12 ==
LOC: PHYS 15:15
PROVIDERS: PCP Internal Medicine; Referring Provider Internal Medicine; Visit Provider Internal Medicine
DX: M25.561 Pain in right knee (principal); R53.1 Weakness; R26.89 Other abnormalities of gait and mobility; R29.3 Abnormal posture
CPT/HCPCS: 97110; 97112; 97116; 97140; 97162; 97530; 97535

== ENCOUNTER → 2021-12-17 16:44 | Outpatient (CLI) | payer OTHER, SELFPAY ==
--- NOTE | 2021-12-17 | DI.MG.S_ITS ---
BILATERAL DIGITAL SCREENING MAMMOGRAM 3D/2D WITH CAD: 12/17/2021 CLINICAL: Routine screening. Comparison is made to exams dated: 11/30/2018 mammogram and 07/18/2016 mammogram - [facility]. The tissue of both breasts is heterogeneously dense. This may lower the sensitivity of mammography. Current study was also evaluated with a Computer Aided Detection (CAD) system. No significant masses, calcifications, or other findings are seen in either breast. There has been no significant interval change. IMPRESSION: NEGATIVE There is no mammographic evidence of malignancy. A 1 year screening mammogram is recommended. Based on the Tyrer Cuzick model (a risk assessment model) the patient's lifetime risk is 8.7% and her 10 year risk is 3.0%. According to the ACR, ACS, and NCCN guidelines, an annual breast MRI exam along with mammogram is recommended if the patient's lifetime risk is 20% or greater. This exam was interpreted at Station ID: [id number]. NOTE: For mammograms, a report in lay terms will be sent to the patient. Approximately 15% of breast malignancies will not be visualized mammographically. In the management of a palpable breast mass, a negative mammogram must not discourage biopsy of a clinically suspicious lesion. Electronically Signed By: Roney medina/nikki:12/18/2021 09:40:13 letter sent: Normal Exam ACR BI-RADS Category 1: Negative [id number]
== END ==
PROVIDERS: PCP Internal Medicine; Referring Provider Internal Medicine; Visit Provider Internal Medicine
DX: Z12.31 Encounter for screening mammogram for malignant neoplasm of breast (principal)
CPT/HCPCS: 77063; 77067

== ENCOUNTER → 2024-01-05 11:44 | Outpatient (CLI) | payer OTHER, SELFPAY ==
--- NOTE | 2024-01-05 11:46 | DI.MG.S_ITS ---
BILATERAL DIGITAL SCREENING MAMMOGRAM 3D/2D WITH CAD: 01/05/2024 CLINICAL: Routine screening. Comparison is made to exams dated: 12/17/2021 mammogram, 11/30/2018 mammogram, and 07/18/2016 mammogram - [facility]. The breasts are heterogeneously dense, which may obscure small masses (category c / 51-75% glandular tissue). Current study was also evaluated with a Computer Aided Detection (CAD) system. No significant masses, calcifications, or other findings are seen in either breast. There has been no significant interval change. IMPRESSION: NEGATIVE There is no mammographic evidence of malignancy. A 1 year screening mammogram is recommended. Based on the Tyrer Cuzick model (a risk assessment model) the patient's lifetime risk is 8.4% and her 10 year risk is 3.2%. According to the ACR, ACS, and NCCN guidelines, an annual breast MRI exam along with mammogram is recommended if the patient's lifetime risk is 20% or greater. This exam was interpreted at Station ID: [id number]. NOTE: For mammograms, a report in lay terms will be sent to the patient. Approximately 15% of breast malignancies will not be visualized mammographically. In the management of a palpable breast mass, a negative mammogram must not discourage biopsy of a clinically suspicious lesion. Electronically Signed By: Letty peralta/nikki:01/05/2024 14:25:10 letter sent: Normal Exam ACR BI-RADS Category 1: Negative [id number]
--- NOTE | 2024-01-05 11:46 | DI.US.S_ITS ---
PROCEDURE: US THYROID INDICATIONS: THYROID NODULE TECHNIQUE: Real-time scanning was performed of the thyroid gland, with image documentation. COMPARISON: None. FINDINGS: Thyroid: Right lobe measures 5.5 x 1.5 x 1.5 cm. Left lobe measures 4.8 x 1.5 x 1.0 cm. Isthmus is 0.4 cm thick. Echotexture is heterogeneous. No discrete nodules. IMPRESSION: Heterogeneous appearance of the thyroid gland without discrete nodules. Dictated by: Vanessa Stack M.D. on 01/06/2024 at 12:24 Approved by: Vanessa Stack M.D. on 01/06/2024 at 12:27
== END ==
PROVIDERS: PCP Internal Medicine; Referring Provider Internal Medicine; Visit Provider Internal Medicine
DX: R92.333 Mammographic heterogeneous density, bilateral breasts (principal); Z12.31 Encounter for screening mammogram for malignant neoplasm of breast; E04.1 Nontoxic single thyroid nodule
CPT/HCPCS: 76536; 77063; 77067

== ENCOUNTER → 2025-04-18 16:22 | Outpatient (CLI) | payer OTHER, SELFPAY ==
--- NOTE | 2025-04-18 16:24 | DI.MG.S_ITS ---
MM screening mammo BI: 04/18/2025. BI-RADS: 1 CLINICAL: 59-year old female for bilateral screening mammogram. Tyrer-Cuzick lifetime risk of 6.4%. No personal or first-degree family history of breast cancer. PRIOR EXAMS 01/05/2024, 12/17/2021, 11/30/2018, 07/18/2016. MAMMOGRAPHY TECHNIQUE: 2D and 3D (tomosynthesis) digital mammographic views obtained, with additional images as needed for full coverage. Current study was also evaluated with a Computer Aided Detection (CAD) system. DENSITY C. The breasts are heterogeneously dense, which may obscure small masses. MAMMOGRAPHY FINDINGS Bilateral: No suspicious mass, asymmetry, microcalcification, or other abnormality seen. IMPRESSION: * No evidence of malignancy. RECOMMENDATIONS Bilateral * Annual screening mammography. OVERALL ASSESSMENT CATEGORY BI-RADS-1: Negative. The [employer] recommends annual screening mammography beginning at age 40 for women with average risk of breast cancer. ELECTRONICALLY SIGNED: Moody Yee M.D. on 04/19/2025 at 01:37:49 PM PT Interpreting Station ID: [id number]
== END ==
PROVIDERS: PCP Registered Nurse; Referring Provider Registered Nurse; Visit Provider Registered Nurse
DX: Z12.31 Encounter for screening mammogram for malignant neoplasm of breast (principal); R92.333 Mammographic heterogeneous density, bilateral breasts
CPT/HCPCS: 77063; 77067